=== PATIENT | male | born 1990 | race African-American/Black ===

== ENCOUNTER 2019-03-13 13:07 | Emergency (ER) | payer SELFPAY ==
[~2019-03-13] VITALS: Wt 65.0 kg
[~2019-03-13 13:07] MED LIST: ACET-141 PO; AMIT10TA6 PO; IBUP-1561 PO; MUPI22OI2 TOP; NAPR275T83 PO; SERT50TA6 PO
[2019-03-13 13:11] VITALS: BP 122/64; PULSE 87; RESP 20
== END 2019-03-13 13:11 | disposition home or self-care (01) ==
LOC: E/R 13:07
DX: Z48.02 Encounter for removal of sutures (principal)
CPT/HCPCS: 99282